=== PATIENT | male | born 1965 | race Caucasian/White ===

== ENCOUNTER 2017-08-23 16:20 | Emergency (ER) | payer SELFPAY ==
[~2017-08-23] VITALS: Ht 175.3 cm; Wt 70.0 kg
[2017-08-23 16:27] VITALS: BP 170/84; PULSE 55; RESP 16; TEMP 97.8; O2SAT 98
[2017-08-23] MEDS ORDERED: oxyCODONE/ACETAMINOPHEN 5 MG/325 MG TAB PO ONE (17:30)
--- NOTE | 2017-08-23 17:30 | PD ---
HPI Chief Complaint: Musculoskeletal Complaint Time Seen by Provider: 17:17 Travel History International Travel<30 days: No Contact w/Intl Traveler<30days: No Traveled to known affect area: No History of Present Illness HPI 52 yo M arrives with left humerus pain. He was performing pull-ups about 2 hours prior to ER arrival when he felt a sudden pop and heard a pop. Swelling of the left biceps was suddenly observed and was associated with severe pain and has been since. Pain is worse with range of motion and palpation. No numbness tingling weakness in the forearm on the left side or injury otherwise. PFSH Past Medical History Autoimmune Disease: Yes (LUPUS) Diminished Hearing: No Immune Disorder: Yes (LUPUS) Tetanus Vaccination: Unknown Influenza Vaccination: No Past Surgical History Surgical History: No Previous Surgery Social History Alcohol Use: No Tobacco Use: No Substance Use: No Allergies-Medications (Allergen,Severity, Reaction): Coded Allergies: Penicillins (Verified Allergy, Severe, 08/23/17) Sulfa (Sulfonamide Antibiotics) (Verified Allergy, Severe, 08/23/17) Reported Meds & Prescriptions Reported Meds & Active Scripts Active Hydrocodone-Acetamin 5-325 mg (Hydrocodone/Acetaminophen) 5 Mg-325 Mg Tablet 1- 2 Tab PO Q8HR PRN Review of Systems General / Constitutional: No: Fever HENT: No: Vertigo Cardiovascular: No: Chest Pain or Discomfort Musculoskeletal: Positive: Pain Neurologic: No: Seizures, Sensory Disturbance Physical Exam Narrative GENERAL: 52-year-old male well-nourished well-developed Vital Signs Date Time Temp Pulse Resp B/P (MAP) Pulse Ox O2 Delivery O2 Flow Rate FiO2 08/23/17 16:27 97.8 55 16 170/84 (112) 98 SKIN: Warm and dry. HEAD: Atraumatic. Normocephalic. CARDIOVASCULAR: Regular rate and rhythm. RESPIRATORY: No accessory muscle use. Clear to auscultation. Breath sounds equal bilaterally. GASTROINTESTINAL: Abdomen soft, non-tender, nondistended. Hepatic and splenic margins not palpable. MUSCULOSKELETAL: 2+ radial artery pulse bilaterally. There is depression in the region of the proximal biceps on the left side and a bulge of soft tissue towards the distal humerus and left side concerning for tendon rupture. Handgrip is preserved bilaterally although limited on left side due to pain. NEUROLOGICAL: Awake and alert. No obvious cranial nerve deficits. Motor grossly within normal limits. Five out of 5 muscle strength in the arms and legs. Normal speech. PSYCHIATRIC: Appropriate mood and affect; insight and judgment normal. Data Data Last Documented VS Vital Signs Date Time Temp Pulse Resp B/P (MAP) Pulse Ox O2 Delivery O2 Flow Rate FiO2 08/23/17 16:27 97.8 55 16 170/84 (112) 98 Orders Orders Humerus (Min 2vws) (08/23/17 ) ^ Sling (08/23/17 17:21) Oxycodone-Acetamin 5-325 Mg (Percocet (08/23/17 17:30) Mandatory Outpatient Referral (08/23/17 18:09) Ed Discharge Order (08/23/17 18:10) MDM Medical Decision Making Medical Screen Exam Complete: Yes Emergency Medical Condition: Yes Medical Record Reviewed: Yes Differential Diagnosis Fracture, contusion, dislocation, rupture of the biceps tendon Narrative Course Left humerus x-ray reveals bulging of the biceps muscles consistent with tendon injury which is also consistent with physical exam findings. Sling immobilization. Patient to follow-up with orthopedics this week. d/w Dr Oro Diagnosis Primary Impression: Biceps tendon rupture, proximal Qualified Codes: S46.211A - Strain of muscle, fascia and tendon of other parts of biceps, right arm, initial encounter Referrals: Gil Oro MD 2 days Med/Other Pt SpecificInfo: Prescription(s) given Scripts Hydrocodone/Acetaminophen (Hydrocodone-Acetamin 5-325 mg) 5 Mg-325 Mg Tablet 1-2 TAB PO Q8HR Y for PAIN SCALE 6 TO 10, #15 Prov: Sandor Bowling MD 08/23/17 Disposition: 01 DISCHARGE HOME Condition: Stable Sandor Bowling MD Aug 23, 2017 17:30
[2017-08-23] MEDS ORDERED: HYDR-3516 PO (17:46)
--- NOTE | 2017-08-23 18:03 | RADRPT ---
EXAM DATE/TIME: 08/23/2017 17:37 [facility] COMPARISON: No previous studies available for comparison. INDICATIONS : Pain in left humerus at bicep muscle, while doing pull ups. MEDICAL HISTORY : None. SURGICAL HISTORY : None. ENCOUNTER: Initial ACUITY: 1 day PAIN SCORE: 8/10 LOCATION: Left humerus FINDINGS: Two view examination of the left humerus demonstrates no evidence of fracture or dislocation. Bony m ineralization is normal. There is soft tissue fullness identified in the distal biceps muscle. CONCLUSION: 1. No evidence of acute bony injury. 2. Distal soft tissue swelling the biceps muscle; rule out biceps tendon tear. Prudencio Lopez MD on August 23, 2017 at 18:00 Board Certified Radiologist. This report was verified electronically.
== END 2017-08-23 18:22 | disposition home or self-care (01) ==
LOC: NEPD 16:20
DX: S46.212A Strain of muscle, fascia and tendon of other parts of biceps, left arm, initial encounter (principal); X50.9XXA Other and unspecified overexertion or strenuous movements or postures, initial encounter; Y93.B2 Activity, push-ups, pull-ups, sit-ups; M32.9 Systemic lupus erythematosus, unspecified
CPT/HCPCS: 73060; 99283